=== PATIENT | female | born 1965 | race American Indian/Alaskan Native ===

== ENCOUNTER 2018-02-04 15:08 | Emergency (ER) | payer OTHER ==
[2018-02-04 15:20] VITALS: BP 157/87
[2018-02-04 15:39] LABS: Bacteria,Urine 1+ /HPF (Negative); Mucus,Urine FEW /HPF
[2018-02-04 15:53] LABS: Bilirubin,Urine NEG (Negative); Blood,Urine SM (Negative); Color,Urine Yellow (Yellow); Protein,Urine <15 mg/dL mg/dL (Negative); Urobilinogen,Urine < 2.0 mg/dL (<2.0)
--- NOTE | 2018-02-04 17:59 | Emergency Department Report ---
ED General Adult HPI - General Chief complaint: Fever Stated complaint: FEVER Time Seen by Provider: 02/04/18 17:47 Source: patient Mode of arrival: Ambulatory Limitations: No Limitations - History of Present Illness Initial comments: Patient is a 52-year-old Kayleen female presenting with off and on fevers. Patient states she's been taking Percocet and aspirin which is why she believes her fever has not gotten above 99.8 but this been present for the past 3 days. 3 days ago the patient had a D&C and a biopsy secondary to a uterine fibroid. Patient is scheduled for hysterectomy soon. Patient states she's having fatigue off and on chills and she keeps breaking out into a sweat. Patient states last 2 nights her clothes and wet sweat. Patient is denying any other symptoms. Patient denies nausea vomiting diarrhea chest pain cough sore throat headache and sinus pain dysuria vaginal bleeding at this time. - Related Data Previous Rx's Medication Instructions Recorded Last Taken Type Levofloxacin [Levaquin TAB] 500 mg PO QDAY #7 tablet 02/04/18 Unknown Rx Allergies Allergy/AdvReac Type Severity Reaction Status Date / Time esomeprazole [From Nexium] Allergy Unknown Verified 02/04/18 15:16 losartan Allergy Dizziness Verified 02/04/18 15:16 Sulfa (Sulfonamide Allergy Unknown Verified 02/04/18 15:16 Antibiotics) Penicillins AdvReac Vomiting Verified 02/04/18 15:16 ED Review of Systems ROS: Stated complaint: FEVER Other details as noted in HPI Comment: All other systems reviewed and negative ED Past Medical Hx - Past Medical History Hx Hypertension: Yes Additional medical history: ALLERGY - Surgical History Additional Surgical History: D&C. - Social History Smoking Status: Never Smoker Substance Use Type: Alcohol - Medications Home Medications: Home Medications Medication Instructions Recorded Confirmed Last Taken Type Levofloxacin [Levaquin TAB] 500 mg PO QDAY #7 tablet 02/04/18 Unknown Rx ED Physical Exam - General Limitations: No Limitations General appearance: alert, in no apparent distress - Head Head exam: Present: atraumatic, normocephalic - Eye Eye exam: Present: normal appearance - ENT ENT exam: Present: mucous membranes moist - Neck Neck exam: Present: normal inspection - Respiratory Respiratory exam: Present: normal lung sounds bilaterally. Absent: respiratory distress - Cardiovascular Cardiovascular Exam: Present: regular rate, normal rhythm. Absent: systolic murmur, diastolic murmur, rubs, gallop - GI/Abdominal GI/Abdominal exam: Present: soft, normal bowel sounds - Extremities Exam Extremities exam: Present: normal inspection - Back Exam Back exam: Present: normal inspection - Neurological Exam Neurological exam: Present: alert, oriented X3 - Psychiatric Psychiatric exam: Present: normal affect, normal mood - Skin Skin exam: Present: warm, dry, intact, normal color. Absent: rash ED Course Vital Signs 02/04/18 15:16 Temperature 98.2 F Pulse Rate 72 Respiratory 18 Rate Blood Pressure 157/87 O2 Sat by Pulse 100 Oximetry ED Medical Decision Making - Medical Decision Making Patient has no source of her potential fever at this time. Blood cultures be drawn just to rule out bacteremia and the patient be placed on 3 days of Levaquin to be discharged home. Critical care attestation.: If time is entered above; I have spent that time in minutes in the direct care of this critically ill patient, excluding procedure time. ED Disposition Clinical Impression: Fever, unknown origin Disposition: DC-01 TO HOME OR SELFCARE Is pt being admited?: No Does the pt Need Aspirin: No Condition: Stable Instructions: Fever in Adults (ED) Prescriptions: Levofloxacin [Levaquin TAB] 500 mg PO QDAY #7 tablet Referrals: PRIMARY CARE, [Primary Care Provider] - 3-5 Days
== END 2018-02-04 18:55 | disposition home or self-care (01) ==
LOC: ED 15:08
DX: R50.9 Fever, unspecified (principal); I10 Essential (primary) hypertension; Z88.0 Allergy status to penicillin; Z88.2 Allergy status to sulfonamides; Z88.8 Allergy status to other drugs, medicaments and biological substances
CPT/HCPCS: 36415; 81001; 87040; 99283